=== PATIENT | female | born 1985 | race Caucasian/White ===

== ENCOUNTER 2018-01-28 11:14 | Outpatient (CLI) | payer BC ==
--- NOTE | 2018-01-28 12:23 | RAD ---
RADIOGRAPH RIGHT FOOT 3 VIEWS: HISTORY: A 32-year-old female with pain in the 1st metatarsal of the right foot. FINDINGS: There is no fracture, dislocation, osteolytic lesion, osteoblastic lesion, periosteal elevation, or p ermeative lesion. The joint spaces are maintained, without erosions. Minimal bony hypertrophy of th e 1st metatarsal head, and tiny osteophytes at 1st MTP. Small focus of increased soft tissue attenua tion medial to the 1st MTP. No hallux valgus. IMPRESSION: 1. 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 2. Small soft tissue focus of increased attenuation medial to 1st MTP: recommend clinical correlatio n for mild acute gout. 3. Otherwise, negative. POS: EL
== END 2018-01-28 11:15 | disposition home or self-care (01) ==
LOC: NAV RAD 11:14
PROVIDERS: ATTEND Family Medicine
DX: M25.571 Pain in right ankle and joints of right foot (principal); M19.071 Primary osteoarthritis, right ankle and foot